=== PATIENT | female | born 1985 | race African-American/Black ===

== ENCOUNTER 2016-07-30 13:36 | Emergency (ER) | payer OTHER ==
[~2016-07-30] VITALS: Ht 157.5 cm; Wt 74.6 kg
[~2016-07-30 13:36] MED LIST: AMOXICILLIN875 MG PO; FLEXERIL10 MG PO; LEVAQUIN500 MG PO; Motrin PO; NAPROSYN500 MG PO; NOHOMEMEDS; ROBITUSSIN AC,T10 ML PO; ROBITUSSIN100 MG/5 M PO; ZITHROMAX1 GM PO
[2016-07-30] MEDS ORDERED: ZOFRAN ODT4 MG PO (15:46)
[2016-07-30 16:01] VITALS: BP 138/85
== END 2016-07-30 16:10 | disposition home or self-care (01) ==
LOC: EME 13:36
DX: S00.83XA Contusion of other part of head, initial encounter (principal); S00.01XA Abrasion of scalp, initial encounter; Y04.2XXA Assault by strike against or bumped into by another person, initial encounter; R11.0 Nausea; H53.8 Other visual disturbances
CPT/HCPCS: 99281; 99284